=== PATIENT | female | born 1975 ===

== ENCOUNTER 2023-11-08 04:13 | Outpatient (RCR) | payer MEDICAID, SELFPAY ==
--- NOTE | 2023-11-08 12:15 | DI.RAD_ITS ---
Exam(s) XR LINE PLACEMENT PICC/CVA EXAM: XR LINE PLACEMENT PICC/CVA CLINICAL HISTORY: confirm picc placement TECHNIQUE: 2D digital imaging was performed. Two AP portable views COMPARISON: No exams were available for comparison FINDINGS: A PICC line has been inserted via the right arm. The 1st image shows the tip of the PICC line to li e in the upper SVC. The 2nd image shows the end of the PICC line to be positioned in the lower super ior vena cava. LUNGS: Clear. No pleural abnormality seen. HEART: Normal size. AORTA: Normal diameter. BONES: Unremarkable for age. Soft tissues: Unremarkable. IMPRESSION: Satisfactory placement of PICC line. DATA REPOSITORY: RADIATION DOSE DELIVERED:
[2023-11-08 13:19] LABS: Abs Immature Grans 0.01 10^3/uL (0.0-0.06); Absolute Basophil Count 0.04 10^3/uL (0.0-0.2); Absolute Eosinophil Count 0.04 10^3/uL (0.0-0.7); Absolute Lymphocyte Count 1.58 10^3/uL (1.2-3.4); Absolute Monocyte Count 0.54 10^3/uL (0.1-0.8); Absolute Neutrophil Count 3.96 10^3/uL (1.2-6.7); Basophils % 0.6; Eosinophils % 0.6; HCT 37.3 % (36.0-46.0); HGB 12.4 g/dL (11.2-15.7); Immature Grans % 0.2; Lymphocytes % 25.6; MCHC 33.2 % (32.0-36.0); MCV 87 fL (80-95); Monocytes % 8.8; Neutrophils % 64.2; Platelet Count 207 10^3/uL (130-400); RBC 4.27 10^6/uL (3.93-5.22); RDW 12.9 % (11.7-14.6); RDW-SD 40.8 fL; WBC 6.17 10^3/uL (4.4-10.8)
[2023-11-08 13:57] LABS: ALT 19 U/L (14-59); AST 13 U/L (15-37); Albumin 3.7 g/dL (3.4-5.0); Alkaline Phosphatase 50 U/L (46-116); BUN 10 mg/dL (7-18); Bilirubin, Total 0.6 mg/dL (0.2-1.0); CREATININE 0.8 mg/dL (0.55-1.02); Calcium 8.4 mg/dL (8.5-10.1); Chloride 105 mmol/L (98-107); Estimated GFR 91.97 (mL/min/1.73m2); Glucose 93 mg/dL (74-106); Potassium 3.9 mmol/L (3.5-5.1); Sodium 141 mmol/L (136-145); Total Protein 6.7 g/dL (6.4-8.2)
== END 2023-11-21 23:59 | disposition home or self-care (01) ==
LOC: INF 04:13
PROVIDERS: PCP Family Medicine; Visit Provider Internal Medicine Hematology & Oncology
DX: C21.0 Malignant neoplasm of anus, unspecified (principal)
CPT/HCPCS: 36573; 77001; 80053; 85025

== ENCOUNTER 2023-12-08 15:49 | Outpatient (REF) | payer MEDICAID, SELFPAY ==
[2023-12-08 13:18] LABS: Bilirubin Negative (Negative); Blood Moderate (Negative); Clarity Clear (Clear); Glucose Negative (Negative); Ketones Negative (Negative); Leukocyte Esterase Moderate (Negative); Nitrite Negative (Negative); Urobilinogen 0.2 mg/dL (Up to 0.2); pH 6.5 (5-8)
[2023-12-08 13:24] LABS: Bacteria Moderate HPF (Negative); C & S Indicated? Yes; Casts Negative LPF (Negative); Crystals Negative HPF (Negative); Epithelial Cells Few HPF (Negative); Mucus Negative (Negative)
== END 2023-12-08 15:50 | disposition home or self-care (01) ==
LOC: LBN 15:49
PROVIDERS: PCP Family Medicine; Visit Provider Radiology Radiation Oncology
DX: C21.0 Malignant neoplasm of anus, unspecified (principal)
CPT/HCPCS: 87077; 81003; 81015; 87086; 87186